=== PATIENT | female | born 1985 | race Caucasian/White ===

== ENCOUNTER 2016-10-19 21:40 | Emergency (ER) | payer OTHER ==
[~2016-10-19] VITALS: Ht 170.2 cm; Wt 118.2 kg
[~2016-10-19 21:40] MED LIST: AMOXICILLIN 8751 TAB PO; ATIVAN 1MG T1 MG/TAB PO; ATIVAN1 MG PO; BACTRIM DS 8001 TAB PO; BUSPAR DIVIDOSE15 MG PO; CELEXA 20MG20 MG/TAB PO; CELEXA40 MG PO; CEPHALEXIN500 M1 PO; DEPO-PROVER150 MG/M1 IM; DOXYCYCLINE 10100 MG PO; ECHINACEA ROOT400 MG PO; ECHINACEA400 M1 PO; FLUOXETINE PO; KLONOPIN 0.5MG0.5 MG PO; LEVOXYL0.1 MG PO; LILETTA52 MG IY; LORTAB 5/500 501 TAB PO; MOTRIN 600600 MG/TAB PO; NAPROSYN375 MG PO; NAPROSYN500 MG PO; NO HOME MEDICATIONS; NORCO 325 MG-51 TAB PO; NORCO 325 MG-7.1 TAB PO; OXY IR5 MG PO; PERCOCET 325 MG1 TA2 PO; PRENATAL1 TA2 PO; PRIL40 PO; PROMETHAZINE12.5 M5 PO; SYNTHROID0.05 MG/TA PO; SYNTHROID0.1 MG/TAB PO; ULTRAM 50MG TAB50 MG PO; VIT B-12; VIT B-6100 MG PO; WOMEN'S DAILY1 TAB PO; XANAX 0.5MG0.5 MG PO; ZOFRAN 4MG T4 MG/TAB PO; tussionex
[2016-10-19 21:44] VITALS: BP 139/82; TEMP 98.5
[2016-10-19] MEDS ORDERED: ULTRAM 50MG TAB50 MG PO (22:36)
[2016-10-19 23:09] VITALS: PULSE 69
== END 2016-10-19 23:09 | disposition home or self-care (01) ==
LOC: COL.ER 21:40
DX: M25.531 Pain in right wrist (principal); G89.29 Other chronic pain

== ENCOUNTER → 2016-12-04 | Outpatient (CLI) | payer OTHER | LOC: COL.RAD 09:42 | DX: M25.531 Pain in right wrist (principal) | CPT/HCPCS: J3301; Q9967 ==

== ENCOUNTER 2017-01-16 13:46 | Emergency (ER) | payer OTHER ==
[~2017-01-16] VITALS: Ht 170.2 cm; Wt 120.5 kg
[2017-01-16 13:52] VITALS: BP 119/72; PULSE 71; TEMP 98.3
== END 2017-01-16 14:28 | disposition home or self-care (01) ==
LOC: COL.ER 13:46
DX: J30.9 Allergic rhinitis, unspecified (principal)

== ENCOUNTER 2017-03-25 16:08 | Emergency (ER) | payer SELFPAY ==
[~2017-03-25] VITALS: Ht 172.7 cm; Wt 113.6 kg
[2017-03-25 16:13] VITALS: BP 130/78; PULSE 83; TEMP 99
[2017-03-25] MEDS ORDERED: AMOXICILLIN 8751 TAB PO (16:43)
== END 2017-03-25 16:59 | disposition home or self-care (01) ==
LOC: COL.ER 16:08
DX: J01.90 Acute sinusitis, unspecified (principal); Z98.890 Other specified postprocedural states; Z90.49 Acquired absence of other specified parts of digestive tract

== ENCOUNTER 2017-05-13 12:04 | Emergency (ER) | payer SELFPAY ==
[~2017-05-13] VITALS: Ht 175.3 cm; Wt 122.7 kg
[2017-05-13 12:08] VITALS: BP 136/90
[2017-05-13] MEDS ORDERED: NORCO 325 MG-51 TAB PO (14:45)
[2017-05-13] MEDS ORDERED: FLEXERIL 1010 MG/TAB PO (14:45)
[2017-05-13 14:54] VITALS: PULSE 86; TEMP 98
== END 2017-05-13 14:53 | disposition home or self-care (01) ==
LOC: COL.ER 12:04
DX: M62.838 Other muscle spasm (principal); F41.9 Anxiety disorder, unspecified; F32.9 Major depressive disorder, single episode, unspecified; F17.210 Nicotine dependence, cigarettes, uncomplicated

== ENCOUNTER → 2017-06-08 | Outpatient (CLI) | payer SELFPAY ==
[~2017-06-08] MED LIST changes: +FLEXERIL 1010 MG/TAB PO
[2017-06-08 17:15] LABS: HEMATOCRIT 38.9 % (37.0-47.0); HEMOGLOBIN 12.9 g/dl (12.5-16.0); MEAN CELL VOLUME 91 fl (80.0-100.0); MEAN CORPUSCULAR HEMOGLOBIN 30 pg (27.0-31.0); MEAN CORPUSCULAR HGB CONC 33 g/dl (33.0-37.0); MEAN PLATELET VOLUME 8.7 fl (7.4-10.4); PLATELET COUNT 256 K/mm3 (130-400); RED BLOOD COUNT 4.27 M/mm3 (4.10-5.30); REDCELL DISTRIBUTION WIDTH-CV 13.2 % (11.5-14.5)
[2017-06-08 17:27] LABS: ALBUMIN 4.2 gm/dL (3.5-5.0); BILIRUBIN,TOTAL 0.3 mg/dL (0.0-1.0); CALCIUM 8.8 mg/dL (8.4-10.2); CREATININE, serum 0.79 mg/dL (0.52-1.25); POTASSIUM 3.7 mmol/L (3.4-5.0); TOTAL PROTEIN 7.1 gm/dL (6.4-8.2)
[2017-06-08 17:58] LABS: THYROID STIMULATING HORMONE 3.09 uIU/mL (0.465-4.680)
== END ==
LOC: COL.LAB 16:50
DX: R63.5 Abnormal weight gain (principal)

== ENCOUNTER 2017-06-21 12:32 | Emergency (ER) | payer SELFPAY ==
[~2017-06-21] VITALS: Ht 172.7 cm; Wt 113.6 kg
[2017-06-21 12:42] VITALS: BP 128/81; TEMP 99.5
[2017-06-21 14:14] LABS: COLLECTION METHOD CLEAN CATCH
[2017-06-21 14:23] LABS: MUCOUS Present /lpf; PH 6 (5-8); SQUAMOUS EPITHELIAL 0-2 /hpf; URINE APPEARANCE Clear; URINE BACTERIA None Seen /hpf; URINE BILIRUBIN Negative (NEGATIVE); URINE BLOOD 1+ (NEGATIVE); URINE COLOR Yellow; URINE GLUCOSE Negative (NEGATIVE); URINE KETONE Negative (NEGATIVE); URINE LEUKOCYTE ESTERASE Negative (NEGATIVE); URINE NITRATE Negative (NEGATIVE); URINE PROTEIN(semi-quant) Negative (NEGATIVE); URINE UROBILINOGEN Negative (NEGATIVE)
[2017-06-21] MEDS ORDERED: NORCO 325 MG-7.1 TAB PO (15:05)
[2017-06-21 15:16] VITALS: PULSE 91
== END 2017-06-21 15:17 | disposition home or self-care (01) ==
LOC: COL.ER 12:32
PROVIDERS: Nurse Practitioner
DX: M54.32 Sciatica, left side (principal); J45.909 Unspecified asthma, uncomplicated; F41.9 Anxiety disorder, unspecified; F32.9 Major depressive disorder, single episode, unspecified; F17.210 Nicotine dependence, cigarettes, uncomplicated; Z90.89 Acquired absence of other organs; Z90.49 Acquired absence of other specified parts of digestive tract; Z98.890 Other specified postprocedural states; Z88.2 Allergy status to sulfonamides; Z88.5 Allergy status to narcotic agent
CPT/HCPCS: J1885

== ENCOUNTER 2017-09-23 21:04 | Emergency (ER) | payer BC ==
[~2017-09-23] VITALS: Ht 170.2 cm; Wt 134.1 kg
[2017-09-23 21:09] VITALS: BP 131/76; TEMP 97.4
[2017-09-23] MEDS ORDERED: NORCO 325 MG-51 TAB PO (22:40)
[2017-09-23 23:00] VITALS: PULSE 70
== END 2017-09-23 23:00 | disposition home or self-care (01) ==
LOC: COL.ER 21:04
DX: M79.605 Pain in left leg (principal); F41.9 Anxiety disorder, unspecified; F32.9 Major depressive disorder, single episode, unspecified; F17.210 Nicotine dependence, cigarettes, uncomplicated; Z90.49 Acquired absence of other specified parts of digestive tract; Z98.890 Other specified postprocedural states; Z90.89 Acquired absence of other organs
CPT/HCPCS: J1885; J2360

== ENCOUNTER 2017-10-04 14:03 | Emergency (ER) | payer BC ==
[~2017-10-04] VITALS: Ht 167.6 cm; Wt 129.5 kg
[2017-10-04 14:06] VITALS: BP 119/75; PULSE 73; TEMP 97.8
[2017-10-04] MEDS ORDERED: AMOXICILLIN 50500 MG PO (14:14)
== END 2017-10-04 14:28 | disposition home or self-care (01) ==
LOC: COL.ER 14:03
DX: Z02.79 Encounter for issue of other medical certificate (principal); B08.4 Enteroviral vesicular stomatitis with exanthem

== ENCOUNTER 2017-12-23 11:54 | Emergency (ER) | payer BC ==
[~2017-12-23] VITALS: Ht 167.6 cm; Wt 140.0 kg
[~2017-12-23 11:54] MED LIST changes: +AMOXICILLIN 50500 MG PO
[2017-12-23 12:18] VITALS: BP 125/82; PULSE 62; TEMP 98.9
[2017-12-23] MEDS ORDERED: NORCO 325 MG-7.1 TAB PO (12:58)
== END 2017-12-23 13:21 | disposition home or self-care (01) ==
LOC: COL.ER 11:54
DX: K08.89 Other specified disorders of teeth and supporting structures (principal); F17.210 Nicotine dependence, cigarettes, uncomplicated

== ENCOUNTER 2018-04-08 13:53 | Emergency (ER) | payer BC ==
[~2018-04-08] VITALS: Ht 172.7 cm; Wt 109.1 kg
[2018-04-08 13:55] VITALS: BP 131/87; TEMP 97.6
[2018-04-08 15:06] VITALS: PULSE 89
== END 2018-04-08 15:07 | disposition home or self-care (01) ==
LOC: COL.ER 13:53
DX: J06.9 Acute upper respiratory infection, unspecified (principal); J45.909 Unspecified asthma, uncomplicated; F32.9 Major depressive disorder, single episode, unspecified; F41.9 Anxiety disorder, unspecified; E03.9 Hypothyroidism, unspecified; Z87.891 Personal history of nicotine dependence; Z88.2 Allergy status to sulfonamides; Z88.8 Allergy status to other drugs, medicaments and biological substances

== ENCOUNTER 2018-05-03 11:32 | Emergency (ER) | payer BC ==
[~2018-05-03] VITALS: Ht 172.7 cm; Wt 104.5 kg
[2018-05-03 11:38] VITALS: TEMP 98.8
[2018-05-03] MEDS ORDERED: MULTI VITAMINS1 TAB PO (11:49)
[2018-05-03 12:15] LABS: BASO # 0.1 (0.0-0.2); BASO % 0.7 % (0.0-2.0); EOS # 0.3 (0.0-0.7); EOS % 2.7 % (0-4.0); GRAN # 6.5 (1.4-6.5); GRAN % 66.7 % (42.2-75.2); HEMATOCRIT 42.9 % (37.0-47.0); HEMOGLOBIN 13.9 g/dl (12.5-16.0); LYMPH # 2.2 (1.2-3.4); LYMPH % 22.6 % (20.0-51.0); MEAN CELL VOLUME 92 fl (80.0-100.0); MEAN CORPUSCULAR HEMOGLOBIN 30 pg (27.0-31.0); MEAN CORPUSCULAR HGB CONC 32 g/dl (33.0-37.0); MEAN PLATELET VOLUME 8.7 fl (7.4-10.4); MONO # 0.7 (0.1-0.6); MONO % 6.7 % (1.7-9.3); PLATELET COUNT 287 K/mm3 (130-400); RED BLOOD COUNT 4.67 M/mm3 (4.10-5.30); REDCELL DISTRIBUTION WIDTH-CV 12.7 % (11.5-14.5)
[2018-05-03 12:22] LABS: ALBUMIN 3.9 gm/dL (3.5-5.0); BILIRUBIN,TOTAL 0.3 mg/dL (0.0-1.0); CALCIUM 9.1 mg/dL (8.4-10.2); CREATININE, serum 0.64 mg/dL (0.52-1.25); POTASSIUM 4.4 mmol/L (3.4-5.0); TOTAL PROTEIN 6.8 gm/dL (6.4-8.2)
[2018-05-03 12:54] LABS: COLLECTION METHOD CLEAN CATCH
[2018-05-03 13:01] LABS: PH 7 (5-8); SQUAMOUS EPITHELIAL 0-2 /hpf; URINE APPEARANCE Clear; URINE BACTERIA None Seen /hpf; URINE BILIRUBIN Negative (NEGATIVE); URINE BLOOD Negative (NEGATIVE); URINE COLOR Yellow; URINE GLUCOSE Negative (NEGATIVE); URINE KETONE Negative (NEGATIVE); URINE LEUKOCYTE ESTERASE Negative (NEGATIVE); URINE NITRATE Negative (NEGATIVE); URINE PROTEIN(semi-quant) Negative (NEGATIVE); URINE RBC 0-2 /hpf; URINE UROBILINOGEN Negative (NEGATIVE)
[2018-05-03 14:15] VITALS: BP 122/83; PULSE 70
== END 2018-05-03 14:17 | disposition home or self-care (01) ==
LOC: COL.ER 11:32
PROVIDERS: Emergency Medicine
DX: R10.9 Unspecified abdominal pain (principal); M54.5 Low back pain; Z87.891 Personal history of nicotine dependence; Z90.49 Acquired absence of other specified parts of digestive tract; Z90.89 Acquired absence of other organs
CPT/HCPCS: J1885; J2405; J7030; Q9967

== ENCOUNTER → 2018-08-23 | Outpatient (CLI) | payer SELFPAY ==
[~2018-08-23] MED LIST changes: +MULTI VITAMINS1 TAB PO
== END ==
LOC: COL.RAD 16:56
DX: H57.12 Ocular pain, left eye (principal); G89.11 Acute pain due to trauma

== ENCOUNTER 2019-02-26 12:41 | Emergency (ER) | payer SELFPAY ==
[~2019-02-26] VITALS: Ht 170.2 cm; Wt 113.6 kg
[2019-02-26 12:47] VITALS: TEMP 96.8
[2019-02-26 13:37] VITALS: BP 134/74; PULSE 81
== END 2019-02-26 13:37 | disposition home or self-care (01) ==
LOC: COL.ER 12:41
DX: S92.501A Displaced unspecified fracture of right lesser toe(s), initial encounter for closed fracture (principal); F17.210 Nicotine dependence, cigarettes, uncomplicated; Z88.2 Allergy status to sulfonamides; Z88.5 Allergy status to narcotic agent; Z90.49 Acquired absence of other specified parts of digestive tract; Z90.89 Acquired absence of other organs; W22.8XXA Striking against or struck by other objects, initial encounter

== ENCOUNTER 2019-05-03 10:18 | Emergency (ER) | payer SELFPAY ==
[~2019-05-03] VITALS: Ht 167.6 cm; Wt 122.7 kg
[2019-05-03 10:35] VITALS: BP 120/70; TEMP 98.3
[2019-05-03 12:10] VITALS: PULSE 76
== END 2019-05-03 12:15 | disposition home or self-care (01) ==
LOC: COL.ER 10:18
DX: B34.9 Viral infection, unspecified (principal); Z90.89 Acquired absence of other organs; Z88.2 Allergy status to sulfonamides; Z88.5 Allergy status to narcotic agent; Z90.49 Acquired absence of other specified parts of digestive tract

== ENCOUNTER 2019-09-22 19:01 | Emergency (ER) | payer SELFPAY ==
[~2019-09-22] VITALS: Ht 167.6 cm; Wt 136.4 kg
[2019-09-22 19:27] VITALS: BP 129/92; TEMP 98.3
[2019-09-22 20:48] VITALS: PULSE 77
== END 2019-09-22 20:48 | disposition home or self-care (01) ==
LOC: COL.ER 19:01
DX: M79.671 Pain in right foot (principal); Z90.49 Acquired absence of other specified parts of digestive tract; Z90.89 Acquired absence of other organs; Z87.891 Personal history of nicotine dependence

== ENCOUNTER 2020-01-02 13:46 | Emergency (ER) | payer SELFPAY ==
[~2020-01-02] VITALS: Ht 167.6 cm; Wt 135.9 kg
[2020-01-02 13:52] VITALS: BP 119/77; TEMP 98.7
[2020-01-02] MEDS ORDERED: NORCO 325 MG-51 TAB PO (16:07)
[2020-01-02] MEDS ORDERED: CLEOCIN HCL300 MG PO (16:07)
[2020-01-02 17:45] VITALS: PULSE 86
== END 2020-01-02 17:45 | disposition home or self-care (01) ==
LOC: COL.ER 13:46
DX: S02.5XXA Fracture of tooth (traumatic), initial encounter for closed fracture (principal); E66.9 Obesity, unspecified; Z88.2 Allergy status to sulfonamides; Z88.6 Allergy status to analgesic agent; X58.XXXA Exposure to other specified factors, initial encounter
CPT/HCPCS: J1885

== ENCOUNTER 2020-10-16 12:18 | Emergency (ER) | payer OTHER ==
[~2020-10-16] VITALS: Ht 167.6 cm; Wt 136.4 kg
[~2020-10-16 12:18] MED LIST changes: +CLEOCIN HCL300 MG PO
[2020-10-16 12:40] VITALS: TEMP 97.6
[2020-10-16 13:14] LABS: BASO # 0.1 (0.0-0.2); BASO % 0.5 % (0.0-2.0); EOS # 0.2 (0.0-0.7); EOS % 1.5 % (0-4.0); GRAN % 67.3 % (42.2-75.2); HEMATOCRIT 42.1 % (37.0-47.0); HEMOGLOBIN 13.8 g/dl (12.5-16.0); LYMPH % 25.2 % (20.0-51.0); MEAN CELL VOLUME 90 fl (80.0-100.0); MEAN CORPUSCULAR HEMOGLOBIN 30 pg (27.0-31.0); MEAN CORPUSCULAR HGB CONC 33 g/dl (33.0-37.0); MEAN PLATELET VOLUME 8.6 fl (7.4-10.4); MONO # 0.6 (0.1-0.6); MONO % 5.2 % (1.7-9.3); PLATELET COUNT 304 K/mm3 (130-400); RED BLOOD COUNT 4.66 M/mm3 (4.10-5.30); REDCELL DISTRIBUTION WIDTH-CV 12.6 % (11.5-14.5)
[2020-10-16 13:31] LABS: LIPASE 87 U/L (23-300)
[2020-10-16 13:45] LABS: ALANINE AMINOTRANSFERASE 56 U/L (4-34); ALBUMIN 3.8 gm/dL (3.5-5.0); ALKALINE PHOSPHATASE 62 U/L (50-136); ANION GAP 4 mmol/L (7-16); AST,SGOT 45 U/L (15-37); BILIRUBIN,TOTAL 0.3 mg/dL (0.0-1.0); BLOOD UREA NITROGEN 10 mg/dL (7-17); CALCIUM 9.1 mg/dL (8.4-10.2); CARBON DIOXIDE 28 mmol/L (22-30); CHLORIDE 104 mmol/L (98-107); CREATININE, serum 0.77 (0.52-1.25); GLUCOSE 98 mg/dL (74-106); POTASSIUM 3.8 mmol/L (3.4-5.0); SODIUM 136 mmol/L (137-145); TOTAL PROTEIN 6.6 gm/dL (6.4-8.2)
[2020-10-16 13:59] LABS: TROPONIN-I < 0.012 ng/mL (0.000-0.035)
[2020-10-16 16:44] VITALS: BP 111/77; PULSE 75
== END 2020-10-16 16:50 | disposition home or self-care (01) ==
LOC: COL.ER 12:18
PROVIDERS: Nurse Practitioner Primary Care
DX: R06.02 Shortness of breath (principal); R07.9 Chest pain, unspecified; Z87.891 Personal history of nicotine dependence
CPT/HCPCS: J1885; Q9967

== ENCOUNTER 2021-05-18 08:00 | Emergency (ER) | payer MEDICAID ==
[~2021-05-18] VITALS: Ht 167.6 cm; Wt 131.8 kg
[2021-05-18 08:08] VITALS: BP 150/87; TEMP 97.9
[2021-05-18 08:28] VITALS: PULSE 75
== END 2021-05-18 08:28 | disposition home or self-care (01) ==
LOC: COL.ER 08:00
DX: J02.9 Acute pharyngitis, unspecified (principal); Z90.09 Acquired absence of other part of head and neck; Z87.891 Personal history of nicotine dependence; Z20.822 Contact with and (suspected) exposure to COVID-19
CPT/HCPCS: J8540

== ENCOUNTER 2021-06-18 19:15 | Emergency (ER) | payer MEDICAID ==
[~2021-06-18] VITALS: Ht 167.6 cm; Wt 138.6 kg
[2021-06-18 19:25] VITALS: TEMP 98.3
[2021-06-18 19:48] LABS: BASO # 0.1 K/mm3 (0.0-0.2); BASO % 0.6 % (0.0-2.0); EOS # 0.3 K/mm3 (0.0-0.7); EOS % 2.4 % (0.0-4.0); GRAN # 7.4 K/mm3 (1.4-6.5); GRAN % 68.6 % (42.2-75.2); HEMATOCRIT 39.4 % (37.0-47.0); HEMOGLOBIN 12.8 g/dl (12.5-16.0); LYMPH # 2.5 K/mm3 (1.2-3.4); LYMPH % 23.3 % (20.0-51.0); MEAN CELL VOLUME 88 fl (80.0-100.0); MEAN CORPUSCULAR HEMOGLOBIN 28 pg (27-31); MEAN CORPUSCULAR HGB CONC 33 g/dl (33.0-37.0); MEAN PLATELET VOLUME 8.6 fl (7.4-10.4); MONO # 0.5 K/mm3 (0.1-0.6); MONO % 4.7 % (1.7-9.3); PLATELET COUNT 263 K/mm3 (130-400); REDCELL DISTRIBUTION WIDTH-CV 12.8 % (11.5-14.5)
[2021-06-18 19:54] LABS: INR 1.1 (0.8-3.0); PROTHROMBIN TIME 11.7 SECONDS (9.7-12.8)
[2021-06-18 19:57] LABS: PARTIAL THROMBOPLASTIN TIME 33.4 SECONDS (26.0-37.0)
[2021-06-18 20:02] LABS: D-DIMER < 200.00 ng/mLDDu (200-230)
[2021-06-18 20:05] LABS: ALANINE AMINOTRANSFERASE 36 U/L (0-55); ALBUMIN 3.7 gm/dL (3.5-5.0); ALKALINE PHOSPHATASE 58 U/L (40-150); ANION GAP 10 mmol/L (7-16); AST,SGOT 23 U/L (5-34); BILIRUBIN,TOTAL 0.2 mg/dL (0.2-1.2); BLOOD UREA NITROGEN 7 mg/dL (7-19); CALCIUM 8.8 mg/dL (8.4-10.2); CARBON DIOXIDE 23 mmol/L (22-29); CHLORIDE 104 mmol/L (98-107); CREATININE, serum 0.95 mg/dL (0.57-1.11); GLUCOSE 132 mg/dL (70-99); POTASSIUM 3.7 mmol/L (3.5-4.5); SODIUM 137 mmol/L (136-145); TOTAL PROTEIN 6.8 gm/dL (6.2-8.1)
[2021-06-18 20:12] LABS: TROPONIN-I < 0.010 ng/mL (0.00-0.033)
[2021-06-18 20:36] VITALS: BP 133/78; PULSE 81
== END 2021-06-18 20:38 | disposition home or self-care (01) ==
LOC: COL.ER 19:15
PROVIDERS: Family Medicine
DX: R07.89 Other chest pain (principal); Z88.6 Allergy status to analgesic agent